=== PATIENT | male | born 1955 | race Caucasian/White ===

== ENCOUNTER 2021-11-22 17:51 | Emergency (ER) | payer SELFPAY ==
[~2021-11-22] VITALS: Ht 165.1 cm; Wt 66.0 kg
[2021-11-22 17:55] VITALS: BP 160/82
[2021-11-22] MEDS ORDERED: IBUP-2029 MT (18:43)
== END 2021-11-22 19:11 | disposition home or self-care (01) ==
LOC: ER 17:51
DX: S90.32XA Contusion of left foot, initial encounter (principal); S90.31XA Contusion of right foot, initial encounter; I10 Essential (primary) hypertension; E11.9 Type 2 diabetes mellitus without complications; V03.90XA Pedestrian on foot injured in collision with car, pick-up truck or van, unspecified whether traffic or nontraffic accident, initial encounter; Y93.89 Activity, other specified; Y92.410 Unspecified street and highway as the place of occurrence of the external cause; Z87.891 Personal history of nicotine dependence
CPT/HCPCS: 73620; 99283